=== PATIENT | female | born 1985 | race Caucasian/White ===

== ENCOUNTER 2017-04-29 15:09 | Emergency (ER) | payer MEDICAID ==
[2017-04-29 16:14] VITALS: TEMP 98.6; O2SAT 99
[2017-04-29] MEDS ORDERED: predniSONE 20 MG TAB PO ONE (17:01)
[2017-04-29] MEDS ORDERED: ACETAMINOPHEN W/COD #3 TAB 1 EA TAB PO ONE (17:04)
--- NOTE | 2017-04-29 17:31 | ED.PDOC ---
History of Present Illness - General Chief Complaint: General Stated Complaint: swelling in hands with tingling Time Seen by Provider: 04/29/17 17:01 Source: patient, RN notes reviewed, Vital Signs reviewed Exam Limitations: no limitations Additional Information: Several days of progressively worsening swelling of hands bilaterally as well as rash to dorsum of hands. Denies fever. Denies family history of known Connective Tissue/Rheumatologic disorder other than father with Gout. - History of Present Illness Timing/Duration: 1 week Severity: moderate Improving Factors: nothing Worsening Factors: movement Associated Symptoms: rash Allergies/Adverse Reactions: Allergies NO KNOWN ALLERGY Allergy (Verified 04/29/17 16:14) Home Medications: Ambulatory Orders Acetamin W/Cod #3 Tab [Tylenol #3 Tab] 1 ea PO Q4-6H PRN #20 tab 04/29/17 predniSONE 60 mg PO DAILY 4 Days #12 tab 04/29/17 Review of Systems - Review of Systems Constitutional: States: no symptoms reported EENTM: States: no symptoms reported Respiratory: States: no symptoms reported Cardiology: States: no symptoms reported Gastrointestinal/Abdominal: States: no symptoms reported Genitourinary: States: no symptoms reported Musculoskeletal: States: see HPI Neurological: States: see HPI Endocrine: States: no symptoms reported Hematologic/Lymphatic: States: no symptoms reported Past Medical History (General) - Patient Medical History Hx Stroke: No Hx Congestive Heart Failure: No Hx Diabetes: No - Vaccination History Hx Influenza Vaccination: No - Social History Hx Tobacco Use: No - Female History Patient is a Female of Child Bearing Age (10 -59 yrs old): Yes - Mirena Implant Family Medical History - Family History Mother Family History: Unknown Living Status: Unknown Physical Exam - Physical Exam General Appearance: Alert, Well Developed, Well Groomed, Well Hydrated, Well Nourished, Other - mild distress with exam - unable to fully flex digits due to pain Eye Exam: bilateral normal Ears, Nose, Throat: hearing grossly normal, normal ENT inspection, normal pharynx Neck: non-tender, full range of motion, supple Respiratory: no respiratory distress Cardiovascular/Chest: normal peripheral pulses Gastrointestinal/Abdominal: non tender, soft Back Exam: normal inspection Extremity: swelling - of bilateral hands - PIPs and DIPs Neurologic: costume maker II-XII nml as tested, no motor/sensory deficits, alert, normal mood/affect, oriented x 3 Skin Exam: rash - on bilateral dorsum of hands - inflammatory in appearance Progress - Progress Progress: 04/29/17 17:56 I suspect a rheumatologic condition based on her signs and symptoms. I told her she would need to see a [employer] Software Consultant as an outpatient for a full work-up. In the meantime I will start with some routine labs, pain medicine, and a steroid. 04/29/17 19:06 Pt reports no worsening and possibly slight improvement following Prednisone 60 mg PO x 1 and T3 x 1. - Results/Orders Results/Orders: Laboratory Results - last 24 hr 04/29/17 04/29/17 04/29/17 17:24 17:24 17:24 WBC 3.1 L RBC 4.30 Hgb 12.9 Hct 38.0 MCV 88.3 MCH 29.9 MCHC 33.9 RDW 13.0 Plt Count 221 MPV 8.1 Absolute Neuts (auto) 1.50 L Absolute Lymphs (auto) 1.20 Absolute Monos (auto) 0.20 Absolute Eos (auto) 0.20 Absolute Basos (auto) 0.00 Neutrophils % 48.1 Lymphocytes % 37.9 Monocytes % 7.8 Eosinophils % 5.4 H Basophils % 0.8 ESR 12 Sodium 140 Potassium 3.8 Chloride 106 Carbon Dioxide 28 Anion Gap 9.8 L BUN 6 L Creatinine 0.72 BUN/Creatinine Ratio 8.3 L Random Glucose 91 Serum Osmolality 276.6 Calcium 8.9 Total Bilirubin 0.3 AST 30 ALT 21 Alkaline Phosphatase 41 L C-Reactive Protein < 0.5 Serum Total Protein 7.2 Albumin 3.6 Globulin 3.6 H Albumin/Globulin Ratio 1.0 L 04/29/17 16:10 Temperature 98.6 F Pulse Rate [ 97 H Left Brachial] Respiratory 16 Rate Blood Pressure 141/81 [Left Arm] O2 Sat by Pulse 99 Oximetry Departure - Departure Clinical Impression: Pain and swelling of left knee Arthralgia Qualifiers: Joint pain location: hand Laterality: bilateral Qualified Code(s): M25.541 - Pain in joints of right hand; M25.542 - Pain in joints of left hand Time of Disposition: 19:07 Disposition: Discharge to Home or Self Care Condition: Fair Departure Forms: ED Discharge - Pt. Copy, Patient Portal Self Enrollment Instructions: DI for Arthralgia Prescriptions: Acetamin W/Cod #3 Tab [Tylenol #3 Tab] 1 ea PO Q4-6H PRN #20 tab PRN Reason: Pain -- Moderate To Severe predniSONE 60 mg PO DAILY 4 Days #12 tab Home Medications: Ambulatory Orders Acetamin W/Cod #3 Tab [Tylenol #3 Tab] 1 ea PO Q4-6H PRN #20 tab 04/29/17 predniSONE 60 mg PO DAILY 4 Days #12 tab 04/29/17 Additional Instructions: Will ultimately need to see a [employer] Consultant for definitive evaluation and management. Take medicine as prescribed. Establish primary care within 3 to 5 days. Return to ER if condition worsens/unable to function.
[2017-04-29 19:14] VITALS: BP 135/79
== END 2017-04-29 19:14 | disposition home or self-care (01) ==
LOC: ER 15:09
DX: M25.542 Pain in joints of left hand (principal); M25.562 Pain in left knee
CPT/HCPCS: 36415; 80053; 85025; 85651; 86140; J7512

== ENCOUNTER 2018-06-03 20:21 | Emergency (ER) | payer SELFPAY ==
--- NOTE | 2018-06-03 22:20 | ED.PDOC ---
History of Present Illness - General Chief Complaint: Back Pain or Injury Stated Complaint: lower back pain since yesterday Time Seen by Provider: 06/03/18 20:23 Source: patient Exam Limitations: no limitations - History of Present Illness Initial Comments: Radha Leon 33 y/o female came to ER with no radiating sharp low back pain intermittently and getting worse since this morning.Denies history of back injuries stated just did laundry all day today.Denies bowel or bladder dysfunction,no numbness,no muscle weakness.No chronic medical problems Timing/Duration: 24 hours Quality/Severity: severe, sharpness Back Pain Location: lumbar spine Back Pain Radiation: other - none Method of Injury/Prior Injury: other - NO INJURY Improving Factors: rest Worsening Factors: movement Allergies/Adverse Reactions: Allergies NO KNOWN ALLERGY Allergy (Verified 06/03/18 22:22) Home Medications: Ambulatory Orders Acetamin W/Cod #3 Tab [Tylenol #3 Tab] 1 ea PO Q4-6H PRN #20 tab 04/29/17 predniSONE 60 mg PO DAILY 4 Days #12 tab 04/29/17 Baclofen 20 mg PO BID PRN #14 tab 06/03/18 Tramadol HCl 50 mg PO TID PRN #7 tab 06/03/18 Review of Systems - Review of Systems Constitutional: States: no symptoms reported EENTM: States: no symptoms reported Respiratory: States: no symptoms reported Cardiology: States: no symptoms reported Musculoskeletal: States: back pain All other Systems: Reviewed and Negative, No Change from Baseline Past Medical History (General) - Patient Medical History Hx Stroke: No Hx Congestive Heart Failure: No Hx Diabetes: No Surgical History: no surgical history - Vaccination History Hx Influenza Vaccination: No - Social History Hx Tobacco Use: No - Female History Hx Last Menstrual Period: 03/12/18 - MIRENA IUD Patient : No Family Medical History - Family History Mother Family History: Unknown Living Status: Unknown Physical Exam - Physical Exam General Appearance: Alert, Comfortable, No apparent distress Eyes, Ears, Nose, Throat Exam: normal ENT inspection, pharynx normal Neck Exam: non-tender, full range of motion, normal alignment, normal inspection Cardiovascular/Respiratory: regular rate, rhythm, no M/R/G, normal peripheral pulses Peripheral Pulses: radial,right: 2+, radial,left: 2+ Gastrointestinal/Abdominal: non tender, soft, no organomegaly Back Exam: no CVA tenderness, no vertebral tenderness, vertebral tenderness - sacro coccygeal area with tightness lumbar area. Extremity Exam: non-tender, no pedal edema Neurologic: no motor/sensory deficits, alert, oriented x 3 Skin Exam: normal color, warm/dry Progress - Progress Progress: 06/03/18 22:57 Vital Signs - 24 hr 06/03/18 22:00 Temperature 100.8 F H Pulse Rate [ 103 H monitor] Respiratory 20 Rate Blood Pressure 133/88 [Left Arm] O2 Sat by Pulse 97 Oximetry - Results/Orders Results/Orders: 06/03/18 22:57 Flu A+B (PCR) [INFLUENZA A & B BY PCR] Stat Laboratory Results - last 24 hr 06/03/18 06/03/18 06/03/18 22:25 22:25 22:55 WBC 6.2 RBC 4.13 L Hgb 12.4 Hct 37.4 MCV 90.4 MCH 30.0 MCHC 33.3 RDW 12.7 Plt Count 179 MPV 7.8 Absolute Neuts (auto) 4.50 Absolute Lymphs (auto) 1.10 Absolute Monos (auto) 0.50 Absolute Eos (auto) 0.10 Absolute Basos (auto) 0.00 Neutrophils % 72.3 Lymphocytes % 17.9 L Monocytes % 8.8 Eosinophils % 0.8 L Basophils % 0.2 Sodium Potassium Chloride Carbon Dioxide Anion Gap BUN Creatinine BUN/Creatinine Ratio Random Glucose Serum Osmolality Lactic Acid Calcium Total Bilirubin AST ALT Alkaline Phosphatase C-Reactive Protein Serum Total Protein Albumin Globulin Albumin/Globulin Ratio Urine Color Yellow Urine Appearance Clear Urine pH 5.5 Ur Specific [place] >= 1.030 Urine Protein Trace Urine Glucose (UA) Negative Urine Ketones Trace Urine Blood Negative Urine Nitrite Negative Urine Bilirubin Negative Urine Urobilinogen 1.0 Ur Leukocyte Esterase Negative Urine RBC 0 Urine WBC 5-10 H Ur Epithelial Cells 10-20 Urine Bacteria Rare Urine Mucus Large Urine Opiates Screen Positive H Urine Barbiturates Positive H Ur Phencyclidine Scrn Negative U Amphetamin/Meth Scrn Positive H U Benzodiazepines Scrn Positive H U Cocaine Metab Screen Negative U Cannabinoids Screen Negative 06/03/18 06/03/18 22:55 22:55 WBC RBC Hgb Hct MCV MCH MCHC RDW Plt Count MPV Absolute Neuts (auto) Absolute Lymphs (auto) Absolute Monos (auto) Absolute Eos (auto) Absolute Basos (auto) Neutrophils % Lymphocytes % Monocytes % Eosinophils % Basophils % Sodium 134 L Potassium 3.2 L Chloride 101 Carbon Dioxide 26 Anion Gap 10.2 L BUN 9 Creatinine 0.54 L BUN/Creatinine Ratio 16.7 Random Glucose 104 Serum Osmolality 267.2 L Lactic Acid 1.2 Calcium 8.9 Total Bilirubin 0.6 AST 26 ALT 15 Alkaline Phosphatase 58 C-Reactive Protein 6.9 H Serum Total Protein 8.0 Albumin 4.0 Globulin 4.0 H Albumin/Globulin Ratio 1.0 L Urine Color Urine Appearance Urine pH Ur Specific [place] Urine Protein Urine Glucose (UA) Urine Ketones Urine Blood Urine Nitrite Urine Bilirubin Urine Urobilinogen Ur Leukocyte Esterase Urine RBC Urine WBC Ur Epithelial Cells Urine Bacteria Urine Mucus Urine Opiates Screen Urine Barbiturates Ur Phencyclidine Scrn U Amphetamin/Meth Scrn U Benzodiazepines Scrn U Cocaine Metab Screen U Cannabinoids Screen Discuss all test result with patient and - EKG/XRAY/CT XRAY: lumbar spine-normal alignment Departure - Departure Clinical Impression: Spasm of back muscles Back pain Qualifiers: Back pain location: low back pain Chronicity: acute Back pain laterality: bilateral Sciatica presence: without sciatica Qualified Code(s): M54.5 - Low back pain Time of Disposition: 23:46 Disposition: Discharge to Home or Self Care Condition: Fair Departure Forms: ED Discharge - Pt. Copy, Patient Portal Self Enrollment Instructions: DI for Low Back Pain, DI for Back Spasm Prescriptions: Baclofen 20 mg PO BID PRN #14 tab PRN Reason: Muscle Spasms Tramadol HCl 50 mg PO TID PRN #7 tab PRN Reason: Pain Home Medications: Ambulatory Orders Acetamin W/Cod #3 Tab [Tylenol #3 Tab] 1 ea PO Q4-6H PRN #20 tab 04/29/17 predniSONE 60 mg PO DAILY 4 Days #12 tab 04/29/17 Baclofen 20 mg PO BID PRN #14 tab 06/03/18 Tramadol HCl 50 mg PO TID PRN #7 tab 06/03/18 Additional Instructions: Need to sign up with primary MD [id number];Avoid heavy lifting more than 15 pounds
[2018-06-03] MEDS ORDERED: MORPHINE SULFATE INJ 10 MG/ML VIAL IM ONE (22:56)
[2018-06-03] MEDS ORDERED: ORPHENADRINE CITRATE 30 MG/ML AMP IM ONE (22:56)
--- NOTE | 2018-06-03 23:04 | RAD ---
CLINICAL HISTORY: pain COMPARISON: None. TECHNIQUE: XR LUMBAR SPINE 2-3 VIEWS 06/03/2018 10:20 PM TOOL MAKER APPRENTICE FINDINGS: There is no acute fracture. Alignment is anatomic. There is mild lower lumbar facet arthritis. There is mild narrowing of the L5-S1 disc. Vertebral body heights are preserved. There is moderate stool throughout the colon. Distal transverse and descending colon are distended with air. IMPRESSION: No acute fracture or subluxation. Electronically signed by: Leo Diane MD 06/03/2018 11:02 PM TOOL MAKER APPRENTICE
--- NOTE | 2018-06-03 23:17 | RAD ---
EXAM: Sacrum Coccyx CLINICAL INDICATION: 33-year-old female with pain. COMPARISON: Lumbar spine radiograph 06/03/2018. TECHNIQUE: Four views of the sacrum and coccyx were obtained in multiple projection. FINDINGS: On the frontal view, the distal coccyx is obscured by the pelvic bones and on secondary view terminates off the [id number] of the examination. There is no fracture or dislocation. The joint spaces are preserved. No soft tissue abnormalities are seen. Large volume of fecal content present throughout the large bowel raising the question of fecal stasis or constipation. Dilated loops of large bowel are noted for which the possibility of obstruction cannot be excluded. Intrauterine device present. IMPRESSION: 1. No acute sacrococcygeal radiographic abnormality. 2. Large volume of fecal content present throughout the large bowel raising the question of fecal stasis or constipation. 3. Dilated loops of large bowel are noted for which the possibility of obstruction cannot be excluded. Electronically signed by: Princess Dozier MD 06/03/2018 11:15 PM WIPER BLENDER
[2018-06-03] MEDS ORDERED: CYCLOBENZAPRINE TAB (ER DISP) 10 MG TAB PO ONE (23:46)
[2018-06-03] MEDS ORDERED: traMADol HCL 50 MG (ER DISP) # 6 TABS PO ONE (23:47)
[2018-06-04 00:24] VITALS: BP 140/82; TEMP 99.1; O2SAT 96
== END 2018-06-04 00:24 | disposition home or self-care (01) ==
LOC: ER 20:21
DX: M54.5 Low back pain (principal); M62.830 Muscle spasm of back
CPT/HCPCS: 72100; 72220; 80053; 80307; 81001; 83605; 85025; 86140; J2270; J2360